=== PATIENT | male | born 1980 | race Caucasian/White ===

== ENCOUNTER → 2023-07-11 | Outpatient (CLI) | payer BC | END | disposition home or self-care (01) | LOC: RAD 11:25 | PROVIDERS: ATTEND Registered Nurse | DX: M25.561 Pain in right knee (principal) | CPT/HCPCS: 73564 ==

== ENCOUNTER 2024-12-14 10:08 | Emergency (ER) | payer BC ==
[~2024-12-14] VITALS: Ht 185.4 cm; Wt 106.8 kg
[2024-12-14 10:23] VITALS: BP 138/99; PULSE 81; RESP 18; TEMP 97.8; O2SAT 99
[2024-12-14] MEDS ORDERED: HYDROcodone/acetaminophen 10/325mg tab PO ONE (10:30)
[2024-12-14] MEDS ORDERED: ondansetron 4mg rapidly disintigrating tab PO ONE (10:30)
[2024-12-14] MEDS ORDERED: ONDA-243 PO (16:24)
[2024-12-14] MEDS ORDERED: OXYC-145 PO (16:24)
== END 2024-12-14 19:40 | disposition home or self-care (01) ==
LOC: ER 10:09
DX: M21.379 Foot drop, unspecified foot (principal); M25.561 Pain in right knee; M25.571 Pain in right ankle and joints of right foot
CPT/HCPCS: 73564; 73610; 73721; 99284

== ENCOUNTER 2024-12-14 13:00 | Outpatient (CLI) | payer BC ==
[2024-12-14 14:26] LABS: BASOPHILS % (AUTO) 0.4 % (0-1); EOSINOPHILS # (AUTO) 0.1 X10'3 (0-0.9); EOSINOPHILS % (AUTO) 0.7 % (0-6); HEMOGLOBIN 15.8 g/dl (14.0-17.9); LYMPHOCYTES # (AUTO) 2.7 X10'3 (1.1-4.8); LYMPHOCYTES % (AUTO) 29.4 % (21-51); MEAN CORPUSCULAR HEMOGLOBIN 31.1 PG (27.0-31.0); MEAN CORPUSCULAR VOLUME 94.2 FL (78-98); MONOCYTES # (AUTO) 0.5 X10'3 (0-0.9); MONOCYTES % (AUTO) 5.7 % (2-12); NEUTROPHILS # (AUTO) 5.8 X10'3 (1.8-7.7); NEUTROPHILS % (AUTO) 63.8 % (42-75); PLATELET COUNT 263 X10'3 (140-440); RED BLOOD COUNT 5.09 X10'6 (4.70-6.10); RED CELL DISTRIBUTION WIDTH 13.5 % (11.5-14.5)
[2024-12-14 14:39] LABS: ALANINE AMINOTRANSFERASE 51 U/L (12-78); ALBUMIN 4.3 G/DL (3.4-5.0); ALBUMIN/GLOBULIN RATIO 1.2 (1.1-1.5); ALKALINE PHOSPHATASE 97 IU/L (46-116); ANION GAP 6 (8-16); ASPARTATE AMINO TRANSFERASE 27 U/L (10-37); BILIRUBIN,TOTAL 0.5 MG/DL (0.1-1.0); BLOOD UREA NITROGEN 12 MG/DL (7-18); BUN/CREATININE RATIO 11.9 (10.0-20.0); CALCIUM 8.9 MG/DL (8.5-10.1); CHLORIDE 104 MMOL/L (99-107); CHOL/HDL RATIO 5.6 (0.00-4.99); CHOLESTEROL 247 MG/DL (0-200); CREATININE 1.01 MG/DL (0.60-1.10); GLUCOSE 89 MG/DL (70-104); HDL CHOLESTEROL 44 MG/DL (35-60); LDL CHOLESTEROL 163 MG/DL (50-100); POTASSIUM 4.6 MMOL/L (3.5-5.1); SODIUM 142 MMOL/L (135-145); TOTAL CARBON DIOXIDE 31.8 MMOL/L (24-32); TRIGLYCERIDES 190 MG/DL (20-135); eGFR 80 ML/MIN
[2024-12-14] MEDS ORDERED: OXYC-145 PO (16:24)
[2024-12-14] MEDS ORDERED: ONDA-243 PO (16:24)
== END 2024-12-14 23:59 | disposition home or self-care (01) ==
LOC: LAB 13:00
PROVIDERS: ATTEND Registered Nurse
DX: E78.5 Hyperlipidemia, unspecified (principal); I10 Essential (primary) hypertension; Z00.00 Encounter for general adult medical examination without abnormal findings
CPT/HCPCS: 36415; 80053; 80061; 85025

== ENCOUNTER 2025-01-18 16:58 | Emergency (ER) | payer BC ==
[~2025-01-18] VITALS: Ht 185.4 cm; Wt 109.0 kg
[~2025-01-18 16:58] MED LIST: ONDA-243 PO; OXYC-145 PO
[2025-01-18] MEDS ORDERED: TRIA15CR61 TOP (17:45)
[2025-01-18] MEDS ORDERED: PRED20TA PO (17:45)
[2025-01-18] MEDS: dexamethasone sod phosphate 10mg/ml inj IM STA (17:51)
[2025-01-18 18:02] VITALS: BP 149/99; PULSE 91; RESP 16; TEMP 98.1; O2SAT 98
== END 2025-01-18 18:05 | disposition home or self-care (01) ==
LOC: ER 16:58
DX: L23.7 Allergic contact dermatitis due to plants, except food (principal)
CPT/HCPCS: 96372; 99283; J1100

== ENCOUNTER 2025-09-26 09:42 | Emergency (ER) | payer BC ==
[~2025-09-26] VITALS: Ht 182.9 cm; Wt 245.0 kg
[2025-09-26 09:49] VITALS: BP 148/103; PULSE 66; RESP 17; TEMP 98; O2SAT 99
--- NOTE | 2025-09-26 10:25 | Physician Documentation ---
History of Present Illness ~ Chief Complaint: Eye Pain Stated Complaint: EYE PAIN Time Seen by MD: 09:57 Source: patient Mode of Arrival: POV Exam Limitations: no limitations HPI Patient presents with eye reddness onset yesterday. He has slight pain with movement. No visial impairement. No blurred va, double va. + discharge/crusting. Medication Reconciliation Allergies: Coded Allergies: No Known Allergies (Unverified , 09/26/25) Scheduled Ciprofloxacin Hcl Ophth* (Ciloxan 0.35 Ophth Drops*), 1 DROP RIGHTEYE QID Scheduled PRN ONDANSETRON ODT 4mg tablet (Ondansetron Odt), 1 TAB PO Q6H PRN PRN for nausea/vomiting Oxycodone HCl/Acetaminophen (Percocet 5-325 mg Tablet), 1 TAB PO TID PRN PRN for pain Physical Exam Vital Signs: RN Vital Signs have been reviewed: Yes, Temperature: 98.0, Heart Rate: 66, Respiratory Rate: 17, BP: 148/103, Pulse Oximetry: 99, Weight: 245.000 Pulse Oximetry Reflects: adequate oxygenation General Appearance: alert, WD/WN Eye Lid: normal inspection Conjunctiva: injection Cornea: normal inspection Pupils/EOM/Fundus: PERRLA Visual Acuity : Eye Location: Bilateral Vision Acuity Degree: 20/13 Correction: Uncorrected Respiratory: lungs clear Chest: no accessory muscle use Cardiovascular: regular rate, rhythm, no murmur Procedures Eye Procedure Procedure Note Fluorescein exam right eye. No corneal abrasion seen. Progress Results/Orders Results/Orders Orders - MALINDA ENGEL NP Visual Acuity (09/26/25 10:01) Eye Procedure (09/26/25 ) Vital Signs 09/26/25 09:49 Temp 98.0 Pulse 66 Resp 17 B/P (MAP) 148/103 Pulse Ox 99 Medical Decision Making Additional information obtaine: N/A Findings Patient presents with eye redness with some purulent discharge.. Patient is without visual changes. There is no significant pain. There is some slight irritation with movement of the eye. Fluorescein exam was without obvious co rneal abrasion. There is no retained foreign body. No evidence of globe rupture or superimposed infection. Prescribed antibiotics and instructed patient to follow up. Ear Diff. Dx: Considerations: Unlikely: Other Eye Diff. Dx: Considerations: Include: [place], Conjuctivits-allergic, Conjuctivitis-bacterial, Conjuctivits-chlamydial, Conjuctivitis-viral, Corneal abrasion, Corneal laceration, Corneal ulceration, Foreign body-conjuctiva, Foreign body-corneal, Foreign body-lid, Glaucoma, Hordeolum, Iritis, Orbital cellulitis, Subconjunctival hem, Ultraviolet keratitis, Uveitis Nose Diff. Dx: Considerations: Unlikely: Other Tooth Diff. Dx: Considerations: Unlikely: Other Throat Diff Dx: Considerations: Unlikely: Other Departure Time of Disposition: 10:24 Disposition: 01 HOME / SELF CARE / HOMELESS Impression: Primary Impression: Conjunctivitis Qualified Codes: H10.31 - Unspecified acute conjunctivitis, right eye Additional Instructions: Take antibiotic drops as prescribed. Avoid touching your eye. Wash your hands after you do. Return for new or worsening symptoms. Referrals: NO PRIMARY CARE PROVIDER (PCP) Prescriptions Ciprofloxacin Hcl Ophth* (Ciloxan 0.35 Ophth Drops*) 2.5 Ml Bottle 1 DROP RIGHTEYE QID for 5 Days, #5 ML Prov: MALINDA ENGEL NP 09/26/25 Education Educated: Patient Educated regarding: diagnosis, treatment, need for follow up Signature Scribe Signature: No scribe Attestation: The note accurately reflects work and decisions made by me.Malinda Engel - MERT 09/26/25 13:43 This note was created with the assistance of voice recognition software whereby errors in grammar, syntax, and/or spelling may have occurred despite active proofreading efforts by the author. Please do not hesitate to contact the provider for clarification or for questions regarding the content of this document. MALINDA ENGEL NP Sep 26, 2025 10:25
[2025-09-26] MEDS ORDERED: CIPR2.5D21 RIGHTEYE (10:30)
== END 2025-09-26 10:39 | disposition home or self-care (01) ==
LOC: ER 09:42
DX: H10.9 Unspecified conjunctivitis (principal)
CPT/HCPCS: 99283